=== PATIENT | male | born 1980 | race Caucasian/White ===

== ENCOUNTER 2023-10-06 16:35 | Emergency (ER) | payer MEDICAID ==
[~2023-10-06] VITALS: Ht 172.7 cm; Wt 77.0 kg
[2023-10-06 16:39] VITALS: PULSE 89
[2023-10-06 16:44] VITALS: BP 147/104; RESP 20; O2SAT 100
[2023-10-06 18:15] VITALS: TEMP 98.4
[2023-10-06] MEDS: ACETAMINOPHEN 325MG TABLET PO ONE (18:15)
[2023-10-06] MEDS ORDERED: IBUPROFEN 400MG TABLET PO ONE (18:45)
== END 2023-10-06 18:57 | disposition left against medical advice (07) ==
LOC: ER 16:35
DX: R51.9 Headache, unspecified (principal)
CPT/HCPCS: 93005; 99283